=== PATIENT | male | born 1975 | race Caucasian/White ===

== ENCOUNTER 2017-01-06 17:58 | Emergency (ER) | payer OTHER ==
[2017-01-06 18:16] VITALS: TEMP 98.1
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
[2017-01-06 19:44] VITALS: BP 111/73; PULSE 78; RESP 18; O2SAT 96
== END 2017-01-06 19:44 | disposition home or self-care (01) ==
DX: S80.02XA Contusion of left knee, initial encounter (principal); F17.200 Nicotine dependence, unspecified, uncomplicated; W18.00XA Striking against unspecified object with subsequent fall, initial encounter
CPT/HCPCS: L1830

== ENCOUNTER 2018-02-21 23:28 | Emergency (ER) | payer MEDICAID, OTHER ==
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
[2018-02-22] MEDS ORDERED: LET GEL TOPICAL 1 EA SYR TP ONE ×2 (00:54→01:03)
[2018-02-22 02:36] VITALS: BP 123/84
== END 2018-02-22 03:00 | disposition home or self-care (01) ==
DX: S02.32XA Fracture of orbital floor, left side, initial encounter for closed fracture (principal); F17.200 Nicotine dependence, unspecified, uncomplicated; V18.4XXA Pedal cycle driver injured in noncollision transport accident in traffic accident, initial encounter; Y92.410 Unspecified street and highway as the place of occurrence of the external cause; Y99.8 Other external cause status; Y93.55 Activity, bike riding

== ENCOUNTER → 2018-03-01 | Outpatient (CLI) | payer BC, MEDICAID | LOC: FLAB 11:23 | PROVIDERS: ATTEND Otolaryngology | DX: S02.82XD Fracture of other specified skull and facial bones, left side, subsequent encounter for fracture with routine healing (principal) ==

== ENCOUNTER 2018-09-17 12:51 | Emergency (ER) | payer OTHER, MEDICAID ==
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
[2018-09-17] MEDS ORDERED: IPRATROPIUM/ALBUTEROL 3 ML DEYVIAL IH ONE (14:27)
--- NOTE | 2018-09-17 14:47 | CPEKG ---
Test Reason : OPEN Blood Pressure : / mmHG Vent. Rate : 103 BPM Atrial Rate : 103 BPM P-R Int : 136 ms QRS Dur : 103 ms QT Int : 322 ms P-R-T Axes : 061 006 057 degrees QTc Int : 422 ms Sinus tachycardia Probable left atrial enlargement Left ventricular hypertrophy ST elev, probable normal early repol pattern Confirmed by Lyndsay Gill ([id number]) on 09/17/2018 2:46:39 PM Referred By: Confirmed By:Lyndsay Gill
[2018-09-17] MEDS ORDERED: IOPAMIDOL (ISOVUE 370) 100 ML BTL IV ONE (16:39)
[2018-09-17] MEDS ORDERED: IBUPROFEN 600 MG TAB PO ONE (16:46)
[2018-09-17] MEDS ORDERED: DOXYCYCLINE 100 MG PREPACK#2 BTL TAKEHOME ONE (17:17)
[2018-09-17] MEDS ORDERED: DOXYCYCLINE HYCLATE 100 MG CAP/TAB PO ONE (17:17)
[2018-09-17 17:39] VITALS: BP 124/75
== END 2018-09-17 17:39 | disposition home or self-care (01) ==
DX: J18.1 Lobar pneumonia, unspecified organism (principal)
CPT/HCPCS: 82435-PO; 82565-PO; 82947-PO; 84132-PO; 84295-PO; 84520-PO; 85014-ER; Q9967